=== PATIENT | female | born 1990 | race American Indian/Alaskan Native ===

== ENCOUNTER 2021-01-13 20:05 | Inpatient (IN) | payer SELFPAY ==
[2021-01-13] MEDS ORDERED: LACTATED RINGERS 1,000 ML IV ONE (22:41)
--- NOTE | 2021-01-13 23:03 | Ultrasound Report ---
ULTRASOUND OBSTETRIC LIMITED ULTRASOUND BIOPHYSICAL PROFILE INDICATION / CLINICAL INFORMATION: WELLBEING. COMPARISON: None available. FINDINGS: BREATHING MOVEMENT = 2 GROSS BODY MOVEMENT = 2 TONE = 2 QUALITATIVE AMNIOTIC FLUID VOLUME = 2 TOTAL BIOPHYSICAL SCORE = 8/8 AMNIOTIC FLUID INDEX (cm) = 7.1 PRESENTATION: Cephalic. HEART RATE (beats per minute): 130 ADDITIONAL FINDINGS: None. IMPRESSION: 1. Biophysical Score = 8/8 Signer Name: Sang Pride MD Signed: 01/13/2021 10:58 PM Workstation Name: [id number]
--- NOTE | 2021-01-13 23:44 | History and Physical Report ---
History of Present Illness Date of examination: 01/13/21 Chief complaint: Labor History of present illness: This is a 30 year-old female EDC 01/25/21 according to the patient who received PNC in [place]. Her last visit to her OB was ~2weeks ago. She presented tonight complaining of contractions, FHT"s were overall reassuring however occasional suspicious deceleration. DANNY 7.1 with BPP 8/8. She was observed and had cervical change from 2cm to 4/70/-2. She admitted now for labor. Past History Past Medical History: no pertinent history Past Surgical History: no surgical history [employer] History: chlamydia, gonorrhea, hepatitis B, hepatitis C, herpes, HIV, syphilis, trichomonas - Obstetrical History Expected Date of Delivery: 01/25/21 Actual Gestation: 38 Week(s) 2 Day(s) : 5 Para: 2 Medications and Allergies Allergies Allergy/AdvReac Type Severity Reaction Status Date / Time latex Allergy Swelling Verified 01/13/21 20:45 Home Medications Medication Instructions Recorded Confirmed Last Taken Type Acetaminophen/Codeine 1 tab PO Q8H PRN #10 tab 09/18/14 Unknown Rx [Acetaminophen-Codeine #3 TAB] No Known Home Medications [No 01/29/15 01/29/15 Unknown History Reported Home Medications] Active Meds: Active Medications Lactated Ringer's (Lactated Ringers) 1,000 mls @ 999 mls/hr IV BOLUS ONE Stop: 01/13/21 23:41 Last Admin: 01/13/21 23:05 Dose: 999 mls/hr Documented by: Review of Systems All systems: negative Genitourinary: contractions - Vital Signs Vital signs: Vital Signs Pulse Pulse Ox 87 99 01/13/21 20:30 01/13/21 20:30 Temp Pulse Resp BP Pulse Ox 98.2 F 108 H 18 108/70 100 01/13/21 20:32 01/13/21 23:35 01/13/21 20:32 01/13/21 20:42 01/13/21 23:35 - Physical Exam Breasts: Positive: deferred Cardiovascular: Regular rate Lungs: Positive: Normal air movement Abdomen: Positive: soft. Negative: tenderness Genitourinary (Female): Positive: normal external genitalia, normal perenium Vulva: both: normal Uterus: Positive: enlarged. Negative: tender Anus/Rectum: Positive: normal perianal skin Extremities: Positive: normal - Obstetrical FHR: category 2 Uterine Contraction Monitor Mode: External Cervical Dilatation: 4 Cervical Effacement Percentage: 70 station: -2 Uterine Contraction Pattern: Irregular Results All other labs normal. Assessment and Plan - Patient Problems (1) 38 weeks gestation of Current Visit: Yes Status: Acute (2) Active labor Current Visit: No Status: Acute Plan to address problem: Will attempt to obtain PNR Start Ampicillin Augmentation if needed Findings and plan of care explained to patient, she voiced understanding and agrees with plan of care
[2021-01-13] MEDS ORDERED: OXYTOCIN DRIP 30 UNITS/500 ML BAG IV SCH (23:45)
[2021-01-13] MEDS ORDERED: MINERAL OIL 30 ML ORAL LIQD PO PRN (23:49)
[2021-01-13] MEDS ORDERED: BUTORPHANOL 2 MG/1 ML INJ IV PRN (23:49)
[2021-01-13] MEDS ORDERED: METHYLERGONOVINE MALEATE 0.2 MG/ML VIAL IM PRN (23:49)
[2021-01-13] MEDS ORDERED: CARBOPROST TROMETHAMINE 250 MCG/1 ML INJ IM PRN (23:49)
[2021-01-13] MEDS ORDERED: LIDOCAINE (2%) 20 MG/1 ML VIAL 20 ML MDV INFILTRATI ONE (23:49)
[2021-01-13] MEDS ORDERED: ONDANSETRON 4 MG/2 ML INJ IV PRN (23:49)
[2021-01-13] MEDS ORDERED: miSOPROStol 200 MCG TAB PR PRN (23:49)
[2021-01-13] MEDS ORDERED: ePHEDrine SULFATE 50 MG/1 ML INJ IV PRN (23:49)
[2021-01-13] MEDS ORDERED: TERBUTALINE 1 MG/1 ML INJ SUB-Q PRN (23:49)
[2021-01-13] MEDS ORDERED: AMPICILLIN/NS 2 GM/100 ML 2 GM/100 ML BAG IV ONE (23:49)
[2021-01-13] MEDS ORDERED: OXYTOCIN 10 UNIT/1 ML INJ IM PRN (23:49)
[2021-01-13] MEDS ORDERED: LOPERAMIDE 2 MG CAP PO PRN (23:49)
[2021-01-13] MEDS ORDERED: ACETAMINOPHEN 500 MG TAB PO PRN (23:49)
[2021-01-14] MEDS: LACTATED RINGERS 1,000 ML IV SCH ×2 (01:27→10:51)
[2021-01-14 01:34] LABS: Hematocrit 30.4 % (30.3-42.9); Hemoglobin 10.3 gm/dl (10.1-14.3); Mean Corpuscular HGB Conc 34 % (30-34); Mean Corpuscular Volume 91 fl (79-97); Platelet Count 267 K/mm3 (140-440); Red Blood Count 3.34 M/mm3 (3.65-5.03); Red Cell Distribution Width 15.5 % (13.2-15.2)
[2021-01-14 02:01] LABS: Hepatitis C Virus Antibody Non-Reactive (NonReactive)
[2021-01-14] MEDS ORDERED: AMPICILLIN/NS 1 GM/50 ML 1 GM/50 ML BAG IV SCH (03:51)
[2021-01-14] MEDS ORDERED: OXYTOCIN DRIP 30 UNITS/500 ML BAG IV SCH (06:00)
--- NOTE | 2021-01-14 10:18 | Progress Note ---
Assessment and Plan patient resting, pitocin augmentation in progress. Will continue to monitor. - Patient Problems (1) 38 weeks gestation of Current Visit: Yes Status: Acute (2) Non-reassuring electronic monitoring tracing Current Visit: Yes Status: Acute Subjective - Subjective Date of service: 01/14/21 Principal diagnosis: IUP @ 38+4, CAT 2 tracing, IOL Patient reports: movement normal, no new complaints Objective - Vital Signs Vital Signs: Vital Signs - 12hr 01/13/21 01/13/21 01/13/21 22:20 22:25 22:30 Temperature Pulse Rate 86 81 100 H Respiratory Rate Blood Pressure Blood Pressure [Left] O2 Sat by Pulse 100 99 100 Oximetry 01/13/21 01/13/21 01/13/21 22:35 22:40 22:45 Temperature Pulse Rate 95 H 92 H 85 Respiratory Rate Blood Pressure Blood Pressure [Left] O2 Sat by Pulse 100 100 100 Oximetry 01/13/21 01/13/21 01/13/21 22:50 22:55 23:00 Temperature Pulse Rate 81 96 H 89 Respiratory Rate Blood Pressure Blood Pressure [Left] O2 Sat by Pulse 99 99 99 Oximetry 01/13/21 01/13/21 01/13/21 23:05 23:10 23:15 Temperature Pulse Rate 78 85 89 Respiratory Rate Blood Pressure Blood Pressure [Left] O2 Sat by Pulse 99 100 100 Oximetry 01/13/21 01/13/21 01/13/21 23:20 23:25 23:30 Temperature Pulse Rate 85 81 78 Respiratory Rate Blood Pressure Blood Pressure [Left] O2 Sat by Pulse 99 100 100 Oximetry 01/13/21 01/13/21 01/13/21 23:35 23:40 23:45 Temperature Pulse Rate 108 H 131 H 104 H Respiratory Rate Blood Pressure Blood Pressure [Left] O2 Sat by Pulse 100 100 100 Oximetry 01/13/21 01/13/21 01/13/21 23:50 23:54 23:55 Temperature Pulse Rate 97 H 67 98 H Respiratory Rate Blood Pressure Blood Pressure [Left] O2 Sat by Pulse 99 75 L 100 Oximetry 01/14/21 01/14/21 01/14/21 00:47 00:52 00:57 Temperature Pulse Rate 92 H 88 96 H Respiratory Rate Blood Pressure Blood Pressure [Left] O2 Sat by Pulse 99 98 99 Oximetry 02/01/14/21 01/14/21 01:02 01:07 01:12 Temperature 99.2 F Pulse Rate 96 H 95 H 104 H Respiratory 118 H Rate Blood Pressure Blood Pressure 117/67 [Left] O2 Sat by Pulse 98 100 99 Oximetry 01/14/21 01/14/21 01/14/21 01:17 01:22 01:27 Temperature Pulse Rate 73 90 85 Respiratory Rate Blood Pressure Blood Pressure [Left] O2 Sat by Pulse 100 100 100 Oximetry 01/14/21 01/14/21 01/14/21 01:32 01:37 01:42 Temperature Pulse Rate 85 82 87 Respiratory Rate Blood Pressure Blood Pressure [Left] O2 Sat by Pulse 99 100 99 Oximetry 01/14/21 01/14/21 01/14/21 01:47 01:52 01:57 Temperature Pulse Rate 99 H 87 85 Respiratory Rate Blood Pressure Blood Pressure [Left] O2 Sat by Pulse 100 100 100 Oximetry 01/14/21 01/14/21 01/14/21 02:02 02:03 02:07 Temperature Pulse Rate 78 72 79 Respiratory Rate Blood Pressure 103/66 Blood Pressure [Left] O2 Sat by Pulse 99 99 Oximetry 01/14/21 01/14/21 01/14/21 02:12 02:17 02:22 Temperature Pulse Rate 93 H 90 80 Respiratory Rate Blood Pressure Blood Pressure [Left] O2 Sat by Pulse 98 100 99 Oximetry 01/14/21 01/14/21 01/14/21 02:23 02:27 02:32 Temperature Pulse Rate 82 85 90 Respiratory Rate Blood Pressure Blood Pressure [Left] O2 Sat by Pulse 91 100 100 Oximetry 01/14/21 01/14/21 01/14/21 02:37 02:42 02:47 Temperature Pulse Rate 76 84 77 Respiratory Rate Blood Pressure Blood Pressure [Left] O2 Sat by Pulse 98 99 100 Oximetry 01/14/21 01/14/21 01/14/21 02:52 02:57 03:02 Temperature Pulse Rate 76 71 74 Respiratory Rate Blood Pressure Blood Pressure [Left] O2 Sat by Pulse 99 99 99 Oximetry 01/14/21 01/14/21 01/14/21 03:05 03:07 03:12 Temperature Pulse Rate 68 65 70 Respiratory Rate Blood Pressure 94/55 Blood Pressure [Left] O2 Sat by Pulse 99 100 Oximetry 01/14/21 01/14/2121 03:17 03:22 03:27 Temperature Pulse Rate 73 74 73 Respiratory Rate Blood Pressure Blood Pressure [Left] O2 Sat by Pulse 99 100 99 Oximetry 01/14/21 01/14/21 01/14/21 03:32 03:37 03:42 Temperature Pulse Rate 71 82 77 Respiratory Rate Blood Pressure Blood Pressure [Left] O2 Sat by Pulse 99 99 99 Oximetry 01/14/21 01/14/21 01/14/21 03:47 03:52 03:57 Temperature Pulse Rate 86 81 85 Respiratory Rate Blood Pressure Blood Pressure [Left] O2 Sat by Pulse 98 98 99 Oximetry 01/14/21 01/14/21 01/14/21 04:00 04:02 04:03 Temperature 98.6 F Pulse Rate 88 85 98 H Respiratory 16 Rate Blood Pressure 99/69 102/72 Blood Pressure 102/72 [Left] O2 Sat by Pulse 99 99 Oximetry 01/14/21 01/14/21 01/14/21 04:07 04:09 04:12 Temperature Pulse Rate 78 92 H 106 H Respiratory Rate Blood Pressure Blood Pressure [Left] O2 Sat by Pulse 98 93 97 Oximetry 01/14/21 01/14/21 01/14/21 04:17 04:22 04:27 Temperature Pulse Rate 82 93 H 86 Respiratory Rate Blood Pressure Blood Pressure [Left] O2 Sat by Pulse 99 99 99 Oximetry 01/14/21 01/14/21 01/14/21 04:32 04:37 04:42 Temperature Pulse Rate 84 79 91 H Respiratory Rate Blood Pressure Blood Pressure [Left] O2 Sat by Pulse 98 98 99 Oximetry 01/14/21 01/14/21 01/14/21 04:47 04:52 04:57 Temperature Pulse Rate 97 H 84 79 Respiratory Rate Blood Pressure Blood Pressure [Left] O2 Sat by Pulse 99 99 99 Oximetry 01/14/21 01/14/21 01/14/21 05:02 05:04 05:07 Temperature Pulse Rate 107 H 88 87 Respiratory Rate Blood Pressure 110/65 Blood Pressure [Left] O2 Sat by Pulse 99 94 Oximetry 01/14/21 01/14/21 01/14/21 05:12 05:13 05:17 Temperature Pulse Rate 85 86 83 Respiratory Rate Blood Pressure Blood Pressure [Left] O2 Sat by Pulse 97 93 99 Oximetry 02/01/14/21 01/14/21 05:22 05:23 05:27 Temperature Pulse Rate 97 H 82 92 H Respiratory Rate Blood Pressure Blood Pressure [Left] O2 Sat by Pulse 100 94 96 Oximetry 01/14/21 01/14/21 01/14/21 05:32 05:37 05:42 Temperature Pulse Rate 78 92 H 82 Respiratory Rate Blood Pressure Blood Pressure [Left] O2 Sat by Pulse 98 99 97 Oximetry 01/14/21 01/14/21 01/14/21 05:47 05:52 05:57 Temperature Pulse Rate 102 H 91 H 73 Respiratory Rate Blood Pressure Blood Pressure [Left] O2 Sat by Pulse 97 99 100 Oximetry 01/14/21 01/14/21 01/14/21 06:02 06:03 06:07 Temperature Pulse Rate 89 79 82 Respiratory Rate Blood Pressure 89/51 Blood Pressure [Left] O2 Sat by Pulse 99 99 Oximetry 01/14/21 01/14/21 01/14/21 06:09 06:12 06:17 Temperature Pulse Rate 94 H 87 Respiratory Rate Blood Pressure Blood Pressure [Left] O2 Sat by Pulse 78 L 99 100 Oximetry 01/14/21 01/14/21 01/14/21 06:22 06:27 06:32 Temperature Pulse Rate 94 H 93 H 91 H Respiratory Rate Blood Pressure Blood Pressure [Left] O2 Sat by Pulse 100 100 100 Oximetry 01/14/21 01/14/21 01/14/21 06:37 06:38 06:42 Temperature Pulse Rate 110 H 91 H 71 Respiratory Rate Blood Pressure Blood Pressure [Left] O2 Sat by Pulse 99 86 100 Oximetry 01/14/21 01/14/21 01/14/21 06:47 06:52 06:57 Temperature Pulse Rate 72 73 70 Respiratory Rate Blood Pressure Blood Pressure [Left] O2 Sat by Pulse 99 98 100 Oximetry 01/14/21 01/14/21 01/14/21 07:02 07:03 07:07 Temperature Pulse Rate 72 73 74 Respiratory Rate Blood Pressure 101/58 Blood Pressure [Left] O2 Sat by Pulse 100 100 Oximetry 01/14/21 01/14/21 01/14/21 07:12 07:17 07:22 Temperature Pulse Rate 79 81 79 Respiratory Rate Blood Pressure Blood Pressure [Left] O2 Sat by Pulse 100 100 98 Oximetry 01/14/21 01/14/21 01/14/21 07:27 07:32 07:37 Temperature Pulse Rate 77 88 83 Respiratory Rate Blood Pressure Blood Pressure [Left] O2 Sat by Pulse 100 98 98 Oximetry 01/14/21 01/14/21 01/14/21 07:42 07:47 07:52 Temperature Pulse Rate 96 H 88 83 Respiratory Rate Blood Pressure Blood Pressure [Left] O2 Sat by Pulse 100 100 100 Oximetry 01/14/21 01/14/21 01/14/21 07:57 08:02 08:03 Temperature Pulse Rate 75 88 78 Respiratory Rate Blood Pressure 84/54 Blood Pressure [Left] O2 Sat by Pulse 100 100 Oximetry 01/14/21 01/14/21 01/14/21 08:07 08:12 08:17 Temperature Pulse Rate 74 85 80 Respiratory Rate Blood Pressure Blood Pressure [Left] O2 Sat by Pulse 99 100 99 Oximetry 01/14/21 01/14/21 01/14/21 08:22 08:27 08:32 Temperature Pulse Rate 86 84 93 H Respiratory Rate Blood Pressure Blood Pressure [Left] O2 Sat by Pulse 100 100 100 Oximetry 01/14/21 01/14/21 01/14/21 08:37 08:42 08:47 Temperature Pulse Rate 91 H 80 88 Respiratory Rate Blood Pressure Blood Pressure [Left] O2 Sat by Pulse 99 100 100 Oximetry 01/14/21 01/14/21 01/14/21 08:52 08:57 09:02 Temperature Pulse Rate 84 90 86 Respiratory Rate Blood Pressure Blood Pressure [Left] O2 Sat by Pulse 100 100 100 Oximetry 01/14/21 01/14/21 01/14/21 09:03 09:07 09:12 Temperature Pulse Rate 75 81 83 Respiratory Rate Blood Pressure 88/52 Blood Pressure [Left] O2 Sat by Pulse 100 100 Oximetry 01/14/21 01/14/21 01/14/21 09:17 09:19 09:22 Temperature Pulse Rate 106 H 97 H 74 Respiratory Rate Blood Pressure Blood Pressure [Left] O2 Sat by Pulse 100 86 98 Oximetry 01/14/21 01/14/21 01/14/21 09:27 09:28 09:32 Temperature 98.1 F Pulse Rate 79 83 87 Respiratory 16 Rate Blood Pressure 93/56 Blood Pressure 93/56 [Left] O2 Sat by Pulse 99 100 Oximetry 01/14/21 01/14/21 01/14/21 09:37 09:42 09:47 Temperature Pulse Rate 107 H 84 71 Respiratory Rate Blood Pressure Blood Pressure [Left] O2 Sat by Pulse 100 100 100 Oximetry 01/14/21 01/14/21 01/14/21 09:52 09:57 10:02 Temperature Pulse Rate 81 80 73 Respiratory Rate Blood Pressure Blood Pressure [Left] O2 Sat by Pulse 100 100 100 Oximetry 01/14/21 01/14/21 01/14/21 10:05 10:07 10:12 Temperature Pulse Rate 74 76 84 Respiratory Rate Blood Pressure 87/55 Blood Pressure [Left] O2 Sat by Pulse 100 100 Oximetry 01/14/21 10:13 Temperature Pulse Rate 71 Respiratory Rate Blood Pressure 96/52 Blood Pressure [Left] O2 Sat by Pulse Oximetry - Exam Breasts: normal Cardiovascular: Regular rate Lungs: Normal air movement Abdomen: Present: normal appearance, soft Vulva: both: normal FHR: category 2 Uterine Contraction Monitor Mode: External Uterine Contraction Pattern: Irregular Uterine Tone Measurement Phase: Contraction Uterine Contraction Intensity: Mild Extremities: normal - Labs Labs: Abnormal Labs 01/14/21 01:16 RBC 3.34 L RDW 15.5 H Laboratory Results - last 24 hr 01/14/21 01/14/21 01/14/21 01:16 01:16 01:16 WBC 8.6 RBC 3.34 L Hgb 10.3 Hct 30.4 MCV 91 MCH 31 MCHC 34 RDW 15.5 H Plt Count 267 Syphilis IgG Antibody Hep Bs Antigen Non-reactive Hepatitis C Antibody Non-reactive HIV 1&2 Antibody Rapid HIV P24 Antigen Rubella IgG Antibody Immune Blood Type Antibody Screen 01/14/21 01/14/21 01/14/21 01:16 01:16 01:20 WBC RBC Hgb Hct MCV MCH MCHC RDW Plt Count Syphilis IgG Antibody Nonreactive Hep Bs Antigen Hepatitis C Antibody HIV 1&2 Antibody Rapid Non react HIV P24 Antigen Non react Rubella IgG Antibody Blood Type O POSITIVE Antibody Screen Negative
--- NOTE | 2021-01-14 11:40 | Progress Note ---
Assessment and Plan AROM clear fluid, ISE placed but did not function so removed. Patient denies interventions for pain at this time. Epidural prn, anticipate . - Patient Problems (1) 38 weeks gestation of Current Visit: Yes Status: Acute (2) Non-reassuring electronic monitoring tracing Current Visit: Yes Status: Acute Subjective - Subjective Date of service: 01/14/21 Principal diagnosis: IUP @ 38+4, CAT 2 tracing, IOL Patient reports: movement normal, contractions Objective - Vital Signs Vital Signs: Vital Signs - 12hr 01/13/21 01/13/21 01/13/21 23:40 23:45 23:50 Temperature Pulse Rate 131 H 104 H 97 H Respiratory Rate Blood Pressure Blood Pressure [Left] O2 Sat by Pulse 100 100 99 Oximetry 01/13/21 01/13/21 01/14/21 23:54 23:55 00:47 Temperature Pulse Rate 67 98 H 92 H Respiratory Rate Blood Pressure Blood Pressure [Left] O2 Sat by Pulse 75 L 100 99 Oximetry 01/14/21 01/14/21 01/14/21 00:52 00:57 01:02 Temperature 99.2 F Pulse Rate 88 96 H 96 H Respiratory 118 H Rate Blood Pressure Blood Pressure 117/67 [Left] O2 Sat by Pulse 98 99 98 Oximetry 01/14/21 01/14/21 01/14/21 01:07 01:12 01:17 Temperature Pulse Rate 95 H 104 H 73 Respiratory Rate Blood Pressure Blood Pressure [Left] O2 Sat by Pulse 100 99 100 Oximetry 01/14/21 01/14/21 01/14/21 01:22 01:27 01:32 Temperature Pulse Rate 90 85 85 Respiratory Rate Blood Pressure Blood Pressure [Left] O2 Sat by Pulse 100 100 99 Oximetry 01/14/21 01/14/21 01/14/21 01:37 01:42 01:47 Temperature Pulse Rate 82 87 99 H Respiratory Rate Blood Pressure Blood Pressure [Left] O2 Sat by Pulse 100 99 100 Oximetry 01/14/21 01/14/21 01/14/21 01:52 01:57 02:02 Temperature Pulse Rate 87 85 78 Respiratory Rate Blood Pressure Blood Pressure [Left] O2 Sat by Pulse 100 100 99 Oximetry 01/14/21 01/14/21 01/14/21 02:03 02:07 02:12 Temperature Pulse Rate 72 79 93 H Respiratory Rate Blood Pressure 103/66 Blood Pressure [Left] O2 Sat by Pulse 99 98 Oximetry 01/14/21 01/14/21 01/14/21 02:17 02:22 02:23 Temperature Pulse Rate 90 80 82 Respiratory Rate Blood Pressure Blood Pressure [Left] O2 Sat by Pulse 100 99 91 Oximetry 01/14/21 01/14/21 01/14/21 02:27 02:32 02:37 Temperature Pulse Rate 85 90 76 Respiratory Rate Blood Pressure Blood Pressure [Left] O2 Sat by Pulse 100 100 98 Oximetry 01/14/21 01/14/21 01/14/21 02:42 02:47 02:52 Temperature Pulse Rate 84 77 76 Respiratory Rate Blood Pressure Blood Pressure [Left] O2 Sat by Pulse 99 100 99 Oximetry 01/14/21 01/14/21 01/14/21 02:57 03:02 03:05 Temperature Pulse Rate 71 74 68 Respiratory Rate Blood Pressure 94/55 Blood Pressure [Left] O2 Sat by Pulse 99 99 Oximetry 01/14/21 01/14/21 01/14/21 03:07 03:12 03:17 Temperature Pulse Rate 65 70 73 Respiratory Rate Blood Pressure Blood Pressure [Left] O2 Sat by Pulse 99 100 99 Oximetry 01/14/21 01/14/21 01/14/21 03:22 03:27 03:32 Temperature Pulse Rate 74 73 71 Respiratory Rate Blood Pressure Blood Pressure [Left] O2 Sat by Pulse 100 99 99 Oximetry 01/14/21 01/14/21 01/14/21 03:37 03:42 03:47 Temperature Pulse Rate 82 77 86 Respiratory Rate Blood Pressure Blood Pressure [Left] O2 Sat by Pulse 99 99 98 Oximetry 01/14/21 01/14/21 01/14/21 03:52 03:57 04:00 Temperature 98.6 F Pulse Rate 81 85 88 Respiratory 16 Rate Blood Pressure Blood Pressure 102/72 [Left] O2 Sat by Pulse 98 99 99 Oximetry 01/14/21 01/14/21 01/14/21 04:02 04:03 04:07 Temperature Pulse Rate 85 98 H 78 Respiratory Rate Blood Pressure 99/69 102/72 Blood Pressure [Left] O2 Sat by Pulse 99 98 Oximetry 01/14/21 01/14/21 01/14/21 04:09 04:12 04:17 Temperature Pulse Rate 92 H 106 H 82 Respiratory Rate Blood Pressure Blood Pressure [Left] O2 Sat by Pulse 93 97 99 Oximetry 01/14/21 01/14/21 01/14/21 04:22 04:27 04:32 Temperature Pulse Rate 93 H 86 84 Respiratory Rate Blood Pressure Blood Pressure [Left] O2 Sat by Pulse 99 99 98 Oximetry 01/14/21 01/14/21 01/14/21 04:37 04:42 04:47 Temperature Pulse Rate 79 91 H 97 H Respiratory Rate Blood Pressure Blood Pressure [Left] O2 Sat by Pulse 98 99 99 Oximetry 01/14/21 01/14/21 01/14/21 04:52 04:57 05:02 Temperature Pulse Rate 84 79 107 H Respiratory Rate Blood Pressure Blood Pressure [Left] O2 Sat by Pulse 99 99 99 Oximetry 01/14/21 01/14/21 01/14/21 05:04 05:07 05:12 Temperature Pulse Rate 88 87 85 Respiratory Rate Blood Pressure 110/65 Blood Pressure [Left] O2 Sat by Pulse 94 97 Oximetry 01/14/21 01/14/21 01/14/21 05:13 05:17 05:22 Temperature Pulse Rate 86 83 97 H Respiratory Rate Blood Pressure Blood Pressure [Left] O2 Sat by Pulse 93 99 100 Oximetry 01/14/21 01/14/21 01/14/21 05:23 05:27 05:32 Temperature Pulse Rate 82 92 H 78 Respiratory Rate Blood Pressure Blood Pressure [Left] O2 Sat by Pulse 94 96 98 Oximetry 01/14/21 01/14/21 01/14/21 05:37 05:42 05:47 Temperature Pulse Rate 92 H 82 102 H Respiratory Rate Blood Pressure Blood Pressure [Left] O2 Sat by Pulse 99 97 97 Oximetry 01/14/21 01/14/21 01/14/21 05:52 05:57 06:02 Temperature Pulse Rate 91 H 73 89 Respiratory Rate Blood Pressure Blood Pressure [Left] O2 Sat by Pulse 99 100 99 Oximetry 01/14/21 01/14/21 01/14/21 06:03 06:07 06:09 Temperature Pulse Rate 79 82 Respiratory Rate Blood Pressure 89/51 Blood Pressure [Left] O2 Sat by Pulse 99 78 L Oximetry 01/14/21 01/14/21 01/14/21 06:12 06:17 06:22 Temperature Pulse Rate 94 H 87 94 H Respiratory Rate Blood Pressure Blood Pressure [Left] O2 Sat by Pulse 99 100 100 Oximetry 01/14/21 01/14/21 01/14/21 06:27 06:32 06:37 Temperature Pulse Rate 93 H 91 H 110 H Respiratory Rate Blood Pressure Blood Pressure [Left] O2 Sat by Pulse 100 100 99 Oximetry 01/14/21 01/14/21 01/14/21 06:38 06:42 06:47 Temperature Pulse Rate 91 H 71 72 Respiratory Rate Blood Pressure Blood Pressure [Left] O2 Sat by Pulse 86 100 99 Oximetry 01/14/21 01/14/21 01/14/21 06:52 06:57 07:02 Temperature Pulse Rate 73 70 72 Respiratory Rate Blood Pressure Blood Pressure [Left] O2 Sat by Pulse 98 100 100 Oximetry 01/14/21 01/14/21 01/14/21 07:03 07:07 07:12 Temperature Pulse Rate 73 74 79 Respiratory Rate Blood Pressure 101/58 Blood Pressure [Left] O2 Sat by Pulse 100 100 Oximetry 01/14/21 01/14/21 01/14/21 07:17 07:22 07:27 Temperature Pulse Rate 81 79 77 Respiratory Rate Blood Pressure Blood Pressure [Left] O2 Sat by Pulse 100 98 100 Oximetry 01/14/21 01/14/21 01/14/21 07:32 07:37 07:42 Temperature Pulse Rate 88 83 96 H Respiratory Rate Blood Pressure Blood Pressure [Left] O2 Sat by Pulse 98 98 100 Oximetry 01/14/21 01/14/21 01/14/21 07:47 07:52 07:57 Temperature Pulse Rate 88 83 75 Respiratory Rate Blood Pressure Blood Pressure [Left] O2 Sat by Pulse 100 100 100 Oximetry 01/14/21 01/14/21 01/14/21 08:02 08:03 08:07 Temperature Pulse Rate 88 78 74 Respiratory Rate Blood Pressure 84/54 Blood Pressure [Left] O2 Sat by Pulse 100 99 Oximetry 01/14/21 01/14/21 01/14/21 08:12 08:17 08:22 Temperature Pulse Rate 85 80 86 Respiratory Rate Blood Pressure Blood Pressure [Left] O2 Sat by Pulse 100 99 100 Oximetry 01/14/21 01/14/21 01/14/21 08:27 08:32 08:37 Temperature Pulse Rate 84 93 H 91 H Respiratory Rate Blood Pressure Blood Pressure [Left] O2 Sat by Pulse 100 100 99 Oximetry 01/14/21 01/14/21 01/14/21 08:42 08:47 08:52 Temperature Pulse Rate 80 88 84 Respiratory Rate Blood Pressure Blood Pressure [Left] O2 Sat by Pulse 100 100 100 Oximetry 01/14/21 01/14/21 01/14/21 08:57 09:02 09:03 Temperature Pulse Rate 90 86 75 Respiratory Rate Blood Pressure 88/52 Blood Pressure [Left] O2 Sat by Pulse 100 100 Oximetry 01/14/21 01/14/21 01/14/21 09:07 09:12 09:17 Temperature Pulse Rate 81 83 106 H Respiratory Rate Blood Pressure Blood Pressure [Left] O2 Sat by Pulse 100 100 100 Oximetry 01/14/21 01/14/21 01/14/21 09:19 09:22 09:27 Temperature 98.1 F Pulse Rate 97 H 74 79 Respiratory 16 Rate Blood Pressure Blood Pressure 93/56 [Left] O2 Sat by Pulse 86 98 99 Oximetry 01/14/21 01/14/21 01/14/21 09:28 09:32 09:37 Temperature Pulse Rate 83 87 107 H Respiratory Rate Blood Pressure 93/56 Blood Pressure [Left] O2 Sat by Pulse 100 100 Oximetry 01/14/21 01/14/21 01/14/21 09:42 09:47 09:52 Temperature Pulse Rate 84 71 81 Respiratory Rate Blood Pressure Blood Pressure [Left] O2 Sat by Pulse 100 100 100 Oximetry 01/14/21 01/14/21 01/14/21 09:57 10:02 10:05 Temperature Pulse Rate 80 73 74 Respiratory Rate Blood Pressure 87/55 Blood Pressure [Left] O2 Sat by Pulse 100 100 Oximetry 01/14/21 01/14/21 01/14/21 10:07 10:12 10:13 Temperature Pulse Rate 76 84 71 Respiratory Rate Blood Pressure 96/52 Blood Pressure [Left] O2 Sat by Pulse 100 100 Oximetry 01/14/21 01/14/21 01/14/21 10:17 10:22 10:27 Temperature Pulse Rate 78 71 75 Respiratory Rate Blood Pressure Blood Pressure [Left] O2 Sat by Pulse 100 100 100 Oximetry 01/14/21 01/14/21 01/14/21 10:32 10:37 10:42 Temperature Pulse Rate 72 76 71 Respiratory Rate Blood Pressure Blood Pressure [Left] O2 Sat by Pulse 100 100 100 Oximetry 01/14/21 01/14/21 01/14/21 10:47 10:52 10:57 Temperature Pulse Rate 102 H 76 78 Respiratory Rate Blood Pressure 96/60 Blood Pressure [Left] O2 Sat by Pulse 100 100 100 Oximetry 01/14/21 01/14/21 01/14/21 11:02 11:03 11:07 Temperature Pulse Rate 69 71 70 Respiratory Rate Blood Pressure 88/53 Blood Pressure [Left] O2 Sat by Pulse 100 100 Oximetry 01/14/21 01/14/21 01/14/21 11:12 11:17 11:21 Temperature Pulse Rate 86 92 H 88 Respiratory Rate Blood Pressure Blood Pressure [Left] O2 Sat by Pulse 100 100 93 Oximetry 01/14/21 01/14/21 01/14/21 11:22 11:27 11:32 Temperature Pulse Rate 94 H 80 94 H Respiratory Rate Blood Pressure Blood Pressure [Left] O2 Sat by Pulse 0 L 100 100 Oximetry - Exam Breasts: normal Lungs: Normal air movement Abdomen: Present: normal appearance Vulva: both: normal Uterine Contraction Monitor Mode: External Cervical Dilatation: 5.5 Cervical Effacement Percentage: 90 station: -1 Uterine Contraction Frequency (min): 2-4 Uterine Contraction Pattern: Regular Uterine Tone Measurement Phase: Contraction Uterine Contraction Intensity: Moderate Extremities: normal - Labs Labs: Abnormal Labs 01/14/21 01:16 RBC 3.34 L RDW 15.5 H Laboratory Results - last 24 hr 01/14/21 01/14/21 01/14/21 01:16 01:16 01:16 WBC 8.6 RBC 3.34 L Hgb 10.3 Hct 30.4 MCV 91 MCH 31 MCHC 34 RDW 15.5 H Plt Count 267 Syphilis IgG Antibody Hep Bs Antigen Non-reactive Hepatitis C Antibody Non-reactive HIV 1&2 Antibody Rapid HIV P24 Antigen Rubella IgG Antibody Immune Blood Type Antibody Screen 01/14/21 01/14/21 01/14/21 01:16 01:16 01:20 WBC RBC Hgb Hct MCV MCH MCHC RDW Plt Count Syphilis IgG Antibody Nonreactive Hep Bs Antigen Hepatitis C Antibody HIV 1&2 Antibody Rapid Non react HIV P24 Antigen Non react Rubella IgG Antibody Blood Type O POSITIVE Antibody Screen Negative
--- NOTE | 2021-01-14 12:15 | Procedure Note ---
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 MARGARET with left shoulder anterior. Infant placed on Mom's abdomen. 3 vessel cord clamped and cut after cessation of pulsation. Placenta delivered spontaneously. No lacerations. EBL 200cc. All counts correct. Mother and Baby LDRP stable. - A at 1 minute: 8 at 5 minutes: 9 (Male 6lbs 13oz) Gender: Male
[2021-01-14] MEDS ORDERED: IBUPROFEN 800 MG TAB PO PRN (13:00)
[2021-01-14 13:53] LABS: Amphetamine Screen,Urine Negative; Benzodiazepines Screen,Urine Negative; Cannabinoid Screen,Urine Negative; Cocaine Screen,Urine Negative; Methadone Screen,Urine Negative; Opiate Screen,Urine Negative
[2021-01-14] MEDS ORDERED: ONDANSETRON 4 MG/2 ML INJ IV PRN (15:26)
[2021-01-14] MEDS ORDERED: PROMETHAZINE 25 MG RECT SUPP PR PRN (15:26)
[2021-01-14] MEDS ORDERED: LANOLIN/ZINC/DIMETHICONE (LANSINOH) 7 GM TP PRN (15:26)
[2021-01-14] MEDS ORDERED: PROMETHAZINE 25 MG TAB PO PRN (15:26)
[2021-01-14] MEDS ORDERED: WITCH HAZEL/ GLYCERIN PAD TP PRN (15:26)
[2021-01-14] MEDS ORDERED: MAGNESIUM HYDROXIDE (MOM) ORAL LIQD UDC PO PRN (15:26)
[2021-01-14] MEDS ORDERED: diphenhydrAMINE 25 MG CAP PO PRN (15:26)
[2021-01-14] MEDS ORDERED: ACETAMINOPHEN 325 MG TAB PO PRN (15:26)
[2021-01-14] MEDS ORDERED: BENZOCAINE/MENTHOL 20/0.5% TOP SPRAY 56 GM TP PRN (15:26)
[2021-01-14] MEDS ORDERED: IBUPROFEN 600 MG TAB PO SCH (18:00)
[2021-01-14] MEDS: FERROUS SULFATE 325 MG TAB PO SCH (21:49)
[2021-01-14] MEDS: DOCUSATE SODIUM 100 MG CAP PO SCH (21:49)
[2021-01-15] MEDS: IBUPROFEN 800 MG TAB PO SCH ×3 (00:30→12:45)
[2021-01-15 02:40] LABS: Hematocrit 31.8 % (30.3-42.9); Hemoglobin 10.7 gm/dl (10.1-14.3)
[2021-01-15] MEDS ORDERED: DIPHtheria,PERTUSSIS(ACELL),TETANUS VACCINE/PF 0.5 ML VIAL IM ONE (06:00)
--- NOTE | 2021-01-15 09:59 | Discharge Summary ---
Providers - Providers Date of Admission: 01/13/21 23:49 Date of discharge: 01/15/21 (desires d/c home) Attending physician: CIRO OLSEN Primary care physician: CIRO OLSEN Hospitalization Reason for admission: labor Condition: Good Pertinent studies: Post delivery h&H 10.7/31.8 Procedures: Hospital course: Uncomplicated and post course Disposition: DC-01 TO HOME OR SELFCARE - Discharge Diagnoses (1) Vaginal delivery Status: Acute Core Measure Documentation - Palliative Care Palliative Care/ Comfort Measures: Not Applicable - Core Measures Any of the following diagnoses?: none Exam - Constitutional Vitals: Temp Pulse Resp BP Pulse Ox 98.2 F 70 18 107/62 100 01/15/21 08:20 01/15/21 08:20 01/15/21 08:20 01/15/21 08:20 01/15/21 08:20 General appearance: Present: no acute distress, well-nourished - EENT Eyes: Present: PERRL ENT: hearing intact, clear oral mucosa - Neck Neck: Present: supple, normal ROM - Respiratory Respiratory effort: normal Respiratory: bilateral: CTA - Cardiovascular Rhythm: regular - Extremities Extremities: No edema - Abdominal General gastrointestinal: Present: soft, non-tender, non-distended, normal bowel sounds Female genitourinary: Present: normal - Integumentary Integumentary: Present: clear, warm, dry - Musculoskeletal Musculoskeletal: gait normal, strength equal bilaterally - Psychiatric Psychiatric: appropriate mood/affect, intact judgment & insight - Neurologic Neurologic: CNII-XII intact, moves all extremities - Additional findings Additional findings: Fundus frim lochia scant. Plan Activity: no restrictions Diet: regular Follow up with: CIRO OLSEN MD [Primary Care Provider] - 7 Days (Congratulations! Please call [phone] to schedule your son's circumcision in 1 week and your post p artum visit in 4 weeks. Bring emla cream to your son's visit and wait for instructions. Call for any questions or concerns.) Prescriptions: Lidocain2.5%/Prilocai2.5% [Emla] 5 gm TP ONCE PRN #1 tube PRN Reason: Pain Ferrous Sulfate [Feosol 325 MG tab] 325 mg PO BID #60 tablet Ibuprofen [Motrin 800 MG tab] 800 mg PO Q8HR PRN #30 tablet PRN Reason: Pain
[2021-01-15] MEDS ORDERED: PRENATAL VIT27-FE FUMARATE-FOLIC ACID VIT TAB PO SCH (10:00)
[2021-01-15] MEDS: FERROUS SULFATE 325 MG TAB PO SCH (10:20)
[2021-01-15] MEDS: DOCUSATE SODIUM 100 MG CAP PO SCH (10:20)
[2021-01-15 17:19] VITALS: BP 102/60
== END 2021-01-15 18:10 | disposition home or self-care (01) | DRG 807 ==
LOC: TRG 20:05 → APU 20:07 → TRG 23:49 → LD 23:49 → OB 01-14 15:25
PROVIDERS: ADMIT Obstetrics & Gynecology; ATTEND Obstetrics & Gynecology
PROC: 10E0XZZ Delivery of Products of Conception, External Approach (ICD-10-PCS; principal; 2021-01-14)
PROC: 10907ZC Drainage of Amniotic Fluid, Therapeutic from Products of Conception, Via Natural or Artificial Opening (ICD-10-PCS; 2021-01-14)
PROC: 3E033VJ Introduction of Other Hormone into Peripheral Vein, Percutaneous Approach (ICD-10-PCS; 2021-01-14)
PROC: 10H07YZ Insertion of Other Device into Products of Conception, Via Natural or Artificial Opening (ICD-10-PCS; 2021-01-14)
PROC: 3E0234Z Introduction of Serum, Toxoid and Vaccine into Muscle, Percutaneous Approach (ICD-10-PCS; 2021-01-15)
DX: O76 Abnormality in fetal heart rate and rhythm complicating labor and delivery (principal); Z37.0 Single live birth; Z3A.38 38 weeks gestation of pregnancy; Z20.822 Contact with and (suspected) exposure to COVID-19; Z91.040 Latex allergy status; Z23 Encounter for immunization
CPT/HCPCS: 36415; 76815; 76819; 80307; 85014; 85018; 85027; 86592; 86706; 86762; 86803; 86850; 86900; 86901; 87806; G0378; A6250; J0290; J2590; J7120; U0003